=== PATIENT | female | born 1985 | race Caucasian/White ===

== ENCOUNTER 2021-10-25 11:10 | Outpatient (REF) | payer OTHER, SELFPAY ==
--- NOTE | ~2021-10-25 | MR_ITS ---
EXAMINATION: MRI BRAIN WITHOUT CONTRAST. 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 COMPARISON: None TECHNIQUE: Multiplanar multisequence MR imaging of the brain was done without IV contrast. FINDINGS: Brain volume: Within normal limits. Structural: No malformations. Brain and meninges: DWI sequence demonstrates no restricted diffusion to suggest acute or subacute cerebral ischemia. Faint punctate FLAIR signal hyperintensities noted in the right anterior frontal subcortical white matter, which are nonspecific. Otherwise, the brain is normal in morphology and signal intensity. Gradient refocused imaging demonstrates no evidence for hemorrhage, hemosiderin staining or abnormal mineral deposition. No extra-axial fluid collections, space-occupying process or mass effect are identified. Ventricles and subarachnoid spaces: The ventricular system and subarachnoid spaces appear within normal limits without hydrocephalus. Orbital structures: The visualized orbital structures are grossly unremarkable within the limitations of the study. Vascular: Signal voids are noted in the visualized major intracranial vessels. Osseous structures, sinuses/mastoids, extracranial soft tissues: Unremarkable. MR/MR head/brain wo con IMPRESSION: 1. A few punctate, nonspecific right frontal subcortical white matter T2 hyperintensities are noted with otherwise unremarkable appearance to the brain. No acute process. No evidence for CVA, extra-axial fluid collection, space-occupying process, mass effect or hydrocephalus. 2. No disproportionate cerebellar volume loss.
== END 2021-10-25 11:11 | disposition home or self-care (01) ==
LOC: HO.MRI 11:10
PROVIDERS: Visit Provider Psychiatry & Neurology Neurology
DX: G11.9 Hereditary ataxia, unspecified (principal)
CPT/HCPCS: 70551